=== PATIENT | male | born 1995 | race Caucasian/White ===

== ENCOUNTER 2016-11-30 11:44 | Emergency (ER) | payer OTHER ==
[2016-11-30 11:54] VITALS: RESP 18
--- NOTE | 2016-11-30 12:17 | ED ---
Psych HPI - General Chief Complaint: Psychiatric Symptoms Stated Complaint: OCD Time Seen by Provider: 11/30/16 11:55 Source: patient, RN notes reviewed Mode of arrival: ambulatory - History of Present Illness Initial Comments: 21-year-old male presents emergency Department with chief complaint of psychiatric evaluation. Patient has severe OCD. Patient states that he currently sees counseling for last 6 months but states that helped. Patient on Zoloft Xanax. Patient states it's getting the point where he fears that he cannot leave his room. Patient denies any suicidal or homicidal thoughts. Denies any illicit drug use now call use. Patient offers no physical complaints. - Related Data Home Medications Medication Instructions Recorded Confirmed Sertraline HCl [Zoloft] 50 mg PO DAILY 11/30/16 11/30/16 Previous Rx's Medication Instructions Recorded ALPRAZolam [Xanax] 0.5 mg PO TID PRN #14 tab 11/30/16 Allergies Allergy/AdvReac Type Severity Reaction Status Date / Time No Known Allergies Allergy Verified 11/30/16 12:09 Review of Systems ROS Statement: Those systems with pertinent positive or pertinent negative responses have been documented in the HPI. ROS Other: All systems not noted in ROS Statement are negative. Past Medical History Additional Past Medical History / Comment(s): OCD History of Any Multi-Drug Resistant Organisms: None Reported Past Surgical History: No Surgical Hx Reported Past Psychological History: Unable to Obtain Smoking Status: Current some day smoker Past Alcohol Use History: Occasional Past Drug Use History: None Reported General Exam Limitations: no limitations General appearance: alert, in no apparent distress Head exam: Present: atraumatic, normocephalic, normal inspection Respiratory exam: Present: normal lung sounds bilaterally. Absent: respiratory distress, wheezes, rales, rhonchi, stridor Cardiovascular Exam: Present: regular rate, normal rhythm, normal heart sounds. Absent: systolic murmur, diastolic murmur, rubs, gallop, clicks GI/Abdominal exam: Present: soft, normal bowel sounds. Absent: distended, tenderness, guarding, rebound, rigid Neurological exam: Present: alert, oriented X3, CN II-XII intact Psychiatric exam: Present: anxious Course Vital Signs 11/30/16 11:51 Temperature 97.9 F Pulse Rate 105 H Respiratory 18 Rate Blood Pressure 139/76 O2 Sat by Pulse 99 Oximetry Medical Decision Making - Medical Decision Making 21-year-old male present emergency department for OCD symptoms. Patient was taking. Patient has had Xanax in the past. Mom and room is requesting that he received some medication. Patient will be given prescription and medication emergency department. [facility] evaluate the patient and did give him a number for psychiatrist. He does not meet inpatient criteria. - Lab Data Lab Results 11/30/16 Range/Units 12:20 Urine Opiates Screen Not Detected (NotDetected) Ur Oxycodone Screen Not Detected (NotDetected) Urine Methadone Screen Not Detected (NotDetected) Ur Propoxyphene Screen Not Detected (NotDetected) Ur Barbiturates Screen Not Detected (NotDetected) U Tricyclic Antidepress Not Detected (NotDetected) Ur Phencyclidine Scrn Not Detected (NotDetected) Ur Amphetamines Screen Not Detected (NotDetected) U Methamphetamines Scrn Not Detected (NotDetected) U Benzodiazepines Scrn Not Detected (NotDetected) Urine Cocaine Screen Not Detected (NotDetected) U Marijuana (THC) Screen Not Detected (NotDetected) Disposition Clinical Impression: OCD (obsessive compulsive disorder) Disposition: HOME SELF-CARE Condition: Stable Additional Instructions: Please return to the Emergency Department if symptoms worsen or any other concerns. Follow-up with psychiatrist as discussed with [facility] Prescriptions: ALPRAZolam [Xanax] 0.5 mg PO TID PRN #14 tab PRN Reason: Anxiety Referrals: Home Mera MD [Primary Care Provider] - 1-2 days Time of Disposition: 14:03
[2016-11-30] MEDS ORDERED: ALPRAZolam 0.5 MG TAB PO STA (13:59)
[2016-11-30 14:16] VITALS: BP 132/78; PULSE 67; TEMP 97.4
== END 2016-11-30 14:16 | disposition home or self-care (01) ==
LOC: EC 11:44
DX: F42.9 Obsessive-compulsive disorder, unspecified (principal); F17.200 Nicotine dependence, unspecified, uncomplicated; Z79.899 Other long term (current) drug therapy
CPT/HCPCS: 80306; 82075; 99284

== ENCOUNTER 2022-04-18 19:12 | Emergency (ER) | payer MEDICARE, OTHER ==
[2022-04-18 20:17] VITALS: BP 135/68; PULSE 103; RESP 20; TEMP 97.7
[2022-04-18] MEDS ORDERED: DEXAMETHASONE SOD PHOSPHATE 10 MG/ML 1 ML VIAL IM STA (20:51)
[2022-04-18] MEDS ORDERED: ACET/COD 300 MG/30 MG STARTER PACK 6 TAB BTL PO STA (20:53)
[2022-04-18] MEDS ORDERED: AMOXIC-POT CLAV 875-125MG 1 EACH TAB PO STA (20:53)
[2022-04-18] MEDS ORDERED: AMOXIC-POT CLAV 875MG STARTER PACK 2 TAB BTL PO STA ×2 (20:53→20:57)
--- NOTE | 2022-04-18 20:56 | ED ---
ENT HPI - General Chief complaint: Dental/Oral Stated complaint: dental pain Time Seen by Provider: 04/18/22 20:38 Source: patient, RN notes reviewed Mode of arrival: ambulatory Limitations: no limitations - History of Present Illness Initial comments: This is a 26-year-old male who presents to the emergency department for gum swelling. Patient states that this has been progressive over the last 2-3 days. This is on the right side of his upper jaw. He is having difficulty opening his mouth due to the pain. He has been taking ibuprofen with no relief. He does not currently have a dentist, however he knows that he has multiple cavities. Denies any fevers, chills, sore throat, cough, dyspnea, chest pain, palpitations, abdominal pain, nausea, vomiting, diarrhea, back pain, or headaches. MD complaint: tooth pain Onset/Timin -: days(s) Context- Dental: history of dental caries Associated Symptoms: gum swelling - Related Data Home Medications Medication Instructions Recorded Confirmed Sertraline HCl [Zoloft] 50 mg PO DAILY 11/30/16 11/30/16 Previous Rx's Medication Instructions Recorded ALPRAZolam [Xanax] 0.5 mg PO TID PRN #14 tab 11/30/16 Amoxic-Pot Clav 875-125Mg 1 tab PO Q12HR 10 Days #20 tab 04/18/22 [Augmentin 875-125] Allergies Allergy/AdvReac Type Severity Reaction Status Date / Time No Known Allergies Allergy Verified 04/18/22 20:17 Review of Systems ROS Statement: Those systems with pertinent positive or pertinent negative responses have been documented in the HPI. ROS Other: All systems not noted in ROS Statement are negative. Past Medical History Additional Past Medical History / Comment(s): OCD History of Any Multi-Drug Resistant Organisms: None Reported Past Surgical History: No Surgical Hx Reported Past Psychological History: No Psychological Hx Reported Smoking Status: Never smoker Past Alcohol Use History: Occasional Past Drug Use History: None Reported General Exam Limitations: no limitations General appearance: alert, in no apparent distress Head exam: Present: atraumatic, normocephalic, normal inspection ENT exam: Present: other (Multiple dental caries with swelling noted at the back of the upper jaw on the right side. Tender to palpation. No palpable abscess. Fullness to the right cheek. ) Respiratory exam: Present: normal lung sounds bilaterally. Absent: respiratory distress, wheezes, rales, rhonchi, stridor Cardiovascular Exam: Present: regular rate, normal rhythm, normal heart sounds. Absent: systolic murmur, diastolic murmur, rubs, gallop, clicks Neurological exam: Present: alert, oriented X3, CN II-XII intact Psychiatric exam: Present: normal affect, normal mood Skin exam: Present: warm, dry, intact, normal color. Absent: rash Course Vital Signs 04/18/22 20:15 Temperature 97.7 F Pulse Rate 103 H Respiratory 20 Rate Blood Pressure 135/68 O2 Sat by Pulse 99 Oximetry Medical Decision Making - Medical Decision Making This is a 26-year-old male who presents to the emergency department for a dental infection. He was given a prescription for Augmentin as well as a Tylenol #3 starter pack. Decadron administered in the emergency department for swelling and inflammation. Advised to use the Tylenol #3 sparingly and to otherwise alternate with Tylenol and ibuprofen. List of dentists provided to the patient, instructed him to follow up with one of these offices as soon as possible. Also discussed the importance of dental hygiene. Return precautions reviewed in depth, the patient is instructed to return to the emergency department with any new, worsening, or concerning symptoms. Patient verbalized understanding. This case was discussed in detail with the attending ED physician. Presentation, findings, and treatment plan discussed in detail as well. Disposition Clinical Impression: Dental infection Disposition: HOME SELF-CARE Instructions (If sedation given, give patient instructions): Dental Abscess (ED), Toothache (ED) Additional Instructions: Return to the emergency department with any new, worsening, or concerning symptoms. Take the antibiotic as prescribed twice daily for 12 days. The first two days worth of medication (4 pills) were provided to you in the emergency department and the last 10 days worth of medication (20 pills) will be at your pharmacy. Alternate with ibuprofen and Tylenol as needed for pain. Contact a dentist office in order to become established and have follow up evaluation. Prescriptions: Amoxic-Pot Clav 875-125Mg [Augmentin 875-125] 1 tab PO Q12HR 10 Days #20 tab Is patient prescribed a controlled substance at d/c from ED?: No Referrals: Home Mera MD [Primary Care Provider] - 1-2 days
== END 2022-04-18 21:13 | disposition home or self-care (01) ==
LOC: EC 19:12
DX: K04.7 Periapical abscess without sinus (principal)
CPT/HCPCS: 99282; J1100